=== PATIENT | female | born 2000 | race Hispanic/Latino ===

== ENCOUNTER 2023-08-22 09:32 | Emergency (ER) | payer OTHER, SELFPAY ==
[2023-08-22] MEDS ORDERED: Boostrix 0.5 ML (Tdap) VIAL (>/=7 yrs of age) ONE (09:54)
[2023-08-22] MEDS ORDERED: Lidocaine 1% PF 5 ML VIAL ONE (10:02)
[2023-08-22] MEDS ORDERED: Bacitracin 1 PK ONE (10:37)
== END 2023-08-22 10:41 | disposition home or self-care (01) ==
LOC: BURERS 09:32
DX: S01.551A Open bite of lip, initial encounter (principal); S01.511A Laceration without foreign body of lip, initial encounter; W54.0XXA Bitten by dog, initial encounter; Y92.238 Other place in hospital as the place of occurrence of the external cause; Z23 Encounter for immunization
CPT/HCPCS: 12011; 90471; 90715